=== PATIENT | male | born 1955 | race Caucasian/White ===

== ENCOUNTER 2018-07-31 17:08 | Emergency (ER) | payer BC ==
[~2018-07-31] VITALS: Ht 175.3 cm; Wt 106.8 kg
--- NOTE | 2018-07-31 18:03 | REP ---
Portable chest, 05:37 p.m., single AP view the patient sitting: There are no comparisons. The lung lucas are clear. Cardiac size is upper normal. The angel, mediastinum, skeletal structures are unremarkable. Impression: Essentially negative portable chest. Electronically Signed by Reggie Sierra MD 07/31/2018 05:55 P
[2018-07-31] MEDS ORDERED: LABETALOL HCL 100 MG/20 ML VIAL IV STA (18:07)
[2018-07-31] MEDS ORDERED: ASPIRIN 81 MG CHEW TABLET PO ONE (18:15)
[2018-07-31 18:23] LABS: BASO # 0.1 10^3/uL (0.0-0.2); BASO % 0.6 % (0.0-1.0); EOS # 0.1 10^3/uL (0.0-0.50); EOS % 1.7 % (0.0-3.0); HEMATOCRIT 50.8 % (42.0-52.0); HEMOGLOBIN 17.6 g/dl (13.5-17.5); LYMPH # 2.4 10^3/uL (1.5-4.5); MEAN CORPUSCULAR HGB CONC 34.6 g/dl (32.0-36.5); MEAN CORPUSCULAR VOLUME 86.5 fl (80.0-96.0); MONO # 0.8 10^3/uL (0.0-0.8); MONO % 10.1 % (0.0-5.0); NEUTROPHILS # 4.8 10^3/uL (1.8-7.7); NEUTROPHILS % 58.4 % (36.0-66.0); PLATELET COUNT, AUTOMATED 234 10^3/uL (150-450); RED BLOOD COUNT 5.87 10^6/uL (4.30-6.10); WHITE BLOOD COUNT 8.2 10^3/uL (4.0-10.0)
[2018-07-31 18:34] LABS: INR 0.96; PARTIAL THROMBOPLASTIN TIME 29.2 SECONDS (25.4-37.6); PROTHROMBIN TIME 12.9 SECONDS (12.1-14.4)
[2018-07-31 18:53] LABS: ALT/SGPT 44 U/L (12-78); BILIRUBIN,DIRECT 0.2 MG/DL (0.0-0.2); BILIRUBIN,TOTAL 0.5 MG/DL (0.2-1.0); BLOOD UREA NITROGEN 13 MG/DL (7-18); CALCIUM LEVEL 10.3 MG/DL (8.8-10.2); CARBON DIOXIDE LEVEL 34 MEQ/L (21-32); CHLORIDE LEVEL 99 MEQ/L (98-107); CPK CREATINE PHOSPHOKINASE 533 U/L (39-308); CREATININE FOR GFR 1.03 MG/DL (0.70-1.30); FREE T4 0.93 NG/DL (0.76-1.46); GLOMERULAR FILTRATION RATE > 60.0 (>49); GLUCOSE, FASTING 97 MG/DL (70-100); LIPASE 115 U/L (73-393); MB/CK RELATIVE INDEX 10.32 (< OR =4); SODIUM LEVEL 137 MEQ/L (136-145)
[2018-07-31] MEDS ORDERED: HEPARIN DRIP 25,000 UNITS in APPROPRIATE DILUENT 1 EA IV SCH (19:24)
[2018-07-31] MEDS ORDERED: NITROGLYCERIN 2% OINT 1 GM *U/D* PKT TOP ONE (19:30)
[2018-07-31] MEDS ORDERED: HEPARIN SOD (PORCINE) 5000 UNITS/ML VIAL IV ONE (19:30)
[2018-07-31 20:12] VITALS: BP 192/97
--- NOTE | 2018-08-01 05:59 | ECGEPIP ---
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
--- NOTE | 2018-08-01 06:02 | ECGEPIP ---
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 Order Number: [id number] Reading MD: Raj Steinberg Measurements Intervals [place] Rate: 69 P: 31 NV: 179 QRS: 26 QRSD: 88 T: 135 QT: 390 QTc: 419 Interpretive Statements SINUS RHYTHM POSSIBLE LEFT ATRIAL ENLARGEMENT MODERATE T-WAVE ABNORMALITY, CONSIDER LATERAL ISCHEMIA SIMILAR TO PRIOR ON SAME DATE Electronically Signed on 08-01-2018 6:02:34 EDT by Raj Steinberg
== END 2018-07-31 20:14 | disposition short-term general hospital (02) ==
LOC: M ED 17:08
DX: I21.4 Non-ST elevation (NSTEMI) myocardial infarction (principal); I10 Essential (primary) hypertension; Z87.891 Personal history of nicotine dependence

== ENCOUNTER 2018-08-04 13:32 | Emergency (ER) | payer BC ==
[~2018-08-04] VITALS: Ht 175.3 cm; Wt 104.5 kg
[2018-08-04] MEDS ORDERED: LISI10TA4 PO (13:41)
[2018-08-04] MEDS ORDERED: NITR0.4S14 SL (13:41)
[2018-08-04] MEDS ORDERED: ATOR80TA59 PO (13:41)
[2018-08-04] MEDS ORDERED: ASPI81TA85 PO (13:41)
[2018-08-04] MEDS ORDERED: BRIL90TA PO (13:41)
[2018-08-04] MEDS ORDERED: AMLO10TA PO (13:41)
[2018-08-04] MEDS ORDERED: TOPR25TA PO (13:41)
[2018-08-04 14:54] LABS: BASO # 0.1 10^3/uL (0.0-0.2); BASO % 0.6 % (0.0-1.0); EOS # 0.2 10^3/uL (0.0-0.50); EOS % 2.7 % (0.0-3.0); HEMATOCRIT 47.3 % (42.0-52.0); HEMOGLOBIN 16.3 g/dl (13.5-17.5); LYMPH # 1.7 10^3/uL (1.5-4.5); LYMPH % 22.5 % (24.0-44.0); MEAN CORPUSCULAR HEMOGLOBIN 30.8 pg (27.0-33.0); MEAN CORPUSCULAR HGB CONC 34.5 g/dl (32.0-36.5); MEAN CORPUSCULAR VOLUME 89.4 fl (80.0-96.0); MONO # 0.8 10^3/uL (0.0-0.8); MONO % 9.8 % (0.0-5.0); NEUTROPHILS # 4.9 10^3/uL (1.8-7.7); NEUTROPHILS % 63.8 % (36.0-66.0); PLATELET COUNT, AUTOMATED 226 10^3/uL (150-450); RED BLOOD COUNT 5.29 10^6/uL (4.30-6.10); WHITE BLOOD COUNT 7.7 10^3/uL (4.0-10.0)
[2018-08-04 15:48] LABS: INR 1.06; PARTIAL THROMBOPLASTIN TIME 27.7 SECONDS (25.0-38.4); PROTHROMBIN TIME 13.5 SECONDS (11.8-14.0)
[2018-08-04 17:20] VITALS: BP 165/80
== END 2018-08-04 18:26 | disposition home or self-care (01) ==
LOC: M ED 13:32
DX: R04.0 Epistaxis (principal); I11.9 Hypertensive heart disease without heart failure; E78.5 Hyperlipidemia, unspecified; Z95.5 Presence of coronary angioplasty implant and graft; Z79.899 Other long term (current) drug therapy; Z79.01 Long term (current) use of anticoagulants; Z79.82 Long term (current) use of aspirin

== ENCOUNTER 2018-09-06 13:11 | Outpatient (RCR) | payer BC ==
[~2018-09-06 13:11] MED LIST: AMLO10TA PO; ASPI81TA85 PO; ATOR80TA59 PO; BRIL90TA PO; LISI10TA4 PO; NITR0.4S14 SL; TOPR25TA PO
--- NOTE | 2018-09-06 14:37 | CARECAPL ---
Assessment Account #s: Initial Assessment General Diagnoses: Stent, NSTEMI Date of event: Aug 01, 2018 Physician: Gaurang Morrison MD Allergies: Coded Allergies: No Known Allergies (Unverified , 07/31/18) Date Entered Program: Sep 06, 2018 Risk strat for cardiac event: High Exercise Assessment: Initial Assessment Exercise Prescription Modalities initiated: Treadmill (will add speed 2.0 for 10 minutes), Nustep (will add level 1 for 10 minutes), Arm Aerometer (will add 1.0 for 8 minutes), Dumbells (1lbs 2 sets for 10 reps each), Recumbent Bike (will add resistance 1 for 5 minutes) Frequency: 3 Duration (Minutes) 30-60 minutes total exercise a day. 15-20 work intervals in minutes. prn rest intervals in minutes. Functional Capacity Goal Sustained Metabolic Equivalent of a task (MET) goal of 3.0-3.5 for 15-20 minutes. Intensity: 3-Moderate Progression (METS) Increase by: 0.5 METS every: 3-5 sessions Angina with ex: No Target Heart Rate rest + 35-40 per beta zaki therapy Hypertension: No Medications Scheduled Amlodipine Besylate (Norvasc), 1 TAB PO DAILY, (Reported) Aspirin (Aspir 81), 1 TAB PO DAILY, (Reported) Atorvastatin Calcium (Atorvastatin Calcium), 1 TAB PO DAILY, (Reported) Lisinopril (Lisinopril), 1 TAB PO DAILY, (Reported) Metoprolol Succinate (Toprol Xl), 1 TAB PO DAILY, (Reported) Nitroglycerin (Nitroglycerin), 1 TAB SL ASDIRECTED, (Reported) Ticagrelor Base (Brilinta), 1 TAB PO BID, (Reported) Target Goals Individual exercise Rx (1) BP 140/90 or 130/80 if DM or CKD (1) Aerobic active 30+min 5 days per week (1) Nutrition Date: Sep 06, 2018 Assessment: Initial Assessment Lipids Total Cholesterol (96), High Density Lipids (HDL) (40), Low Density Lipids (LDL) (96), Triglycerides (143) Lipid- med/supplement atorvastatin Diabetes Diabetes: No Monitor Blood Sugar at home: No Weight Management Weight (lbs): 229 Height (inches): 69 Waist Circumference (Inches): 46 BMI: 33.81 Weight goal: 180 Special Diet: mediteranean diet Alcohol: none Diet Access Tool: Rate your plate Score: 62 Referral to Diabetes education: No Referral to lipid clinic: No Referral to weight mangement p: No Target goal LDL-C<100 if triglycerides are >200 Non-HDL-C should be <130 (1) LDL-C<70 for high risk patients (4) HbA1c<7% (1) BMI<25 Waist cir<40in M/<35in F (1) Education Date: Sep 06, 2018 Assessment: Initial Assessment Learning Barriers: ready Knowledge Test Score: 5 Family Support: Yes Quit: >6 months (quit 40 years ago) Tobacco Use Cigarettes smoked per day: 6 Smokeless tobacco: No Intervention Referral to smoking cessation: No Individual education and couns: No Tobacco Adjunct: No Education class schedule given: No Attended education classes: No Target Goals Complete cessation of tobacco use (1). Psychosocial Date: Sep 06, 2018 Assessment: Initial Assessment Psych Test (Initial/Discharge) Tool Used: CESD (refused) Intervention Physician Consult: No Physician Referral: No Psychotropic medication none Target Goal Assess presence or absence of depression using a valid screening tool (1). Maximize coping skills (2). Positive support system (2). Patient/Program Goal Preventative Medication: Yes Aspirin, Yes Beta blockade, Yes URBAN Inhibitor, Yes Statin/OTR lipid Lowering, Yes Other (brilinta) Fall Risk Assess: Yes (not a fall risk) Provider Assessment Provider Assessment: Proceed with rehab Antonieta Abraham RN Sep 06, 2018 14:37
== END 2018-09-13 ==
LOC: M CR 13:11
PROVIDERS: ATTEND Internal Medicine Cardiovascular Disease
DX: I21.4 Non-ST elevation (NSTEMI) myocardial infarction (principal)

== ENCOUNTER 2018-10-13 08:08 | Outpatient (RCR) | payer BC ==
--- NOTE | 2018-09-27 09:29 | CARECAPL ---
Assessment Account #s: Re-Assessment I General Diagnoses: Stent, STEMI Date of event: Aug 01, 2018 Physician: Gaurang Morrison MD Allergies: Coded Allergies: No Known Allergies (Unverified , 07/31/18) Date Entered Program: Aug 07, 2018 Risk strat for cardiac event: High Exercise Date: Sep 27, 2018 Assessment: Re-Assessment I Exercise Prescription Modalities initiated: Treadmill (2.3/.5 mts 2.81 rpe 3.5 20 minutes), Nustep (L4 mts 2.3 rpe 5 9 minutes), Arm Aerometer, Dumbells, Recumbent Bike (R2 mts 3.2 rpe 4 5 minutes) Duration (Minutes) minutes total exercise a day. work intervals in minutes. rest intervals in minutes. Functional Capacity Goal Sustained Metabolic Equivalent of a task (MET) goal of 4-4.5 for 15-20 minutes. Intensity: 3-Moderate Progression (METS) Increase by: METS every: sessions Angina with ex: No Resistance Training: Yes Weight (pounds): 2 Reps: 6-8 Medications Scheduled Amlodipine Besylate (Norvasc), 1 TAB PO DAILY, (Reported) Aspirin (Aspir 81), 1 TAB PO DAILY, (Reported) Atorvastatin Calcium (Atorvastatin Calcium), 1 TAB PO DAILY, (Reported) Lisinopril (Lisinopril), 1 TAB PO DAILY, (Reported) Metoprolol Succinate (Toprol Xl), 1 TAB PO DAILY, (Reported) Nitroglycerin (Nitroglycerin), 1 TAB SL ASDIRECTED, (Reported) Ticagrelor Base (Brilinta), 1 TAB PO BID, (Reported) Current BP 140/80 Med Change: No Intervention Education: RPE Scale (1.5 scale (5 not able to complete) difficulty scale), Equipment orientation (all equipment reviewed with each visit as needed), warm up/cool down (safety, injury prevention), Understand BP (normal bP range) Education Goals Met: No (progressing toward goals) Target Goals Individual exercise Rx (1) BP 140/90 or 130/80 if DM or CKD (1) Aerobic active 30+min 5 days per week (1) Nutrition Date: Sep 27, 2018 Assessment: Re-Assessment I Current Weight (pounds): 227.4 Intervention Nurse/patient discussion: Yes Diet Class: Yes (will see this program) Referral to Diabetes education: No Referral to lipid clinic: No Referral to weight mangement p: No Education Goals Met: No (progressing toward goals) Target goal LDL-C<100 if triglycerides are >200 Non-HDL-C should be <130 (1) LDL-C<70 for high risk patients (4) HbA1c<7% (1) BMI<25 Waist cir<40in M/<35in F (1) Education Date: Sep 27, 2018 Assessment: Re-Assessment I Intervention Education: Risk factors (printed material given and reviewed with pt), Angina S/S (printed material given to pt and reviewed), Sexuality (printed material given to pt and reviewed) Education Goals Met: No (progressing toward goals) Target Goals Complete cessation of tobacco use (1). Psychosocial Date: Sep 27, 2018 Assessment: Re-Assessment I Education Education: Coping Techniques (printed material given to pt and reviewed) Education Goals Met: No (progressing toward goals) Target Goal Assess presence or absence of depression using a valid screening tool (1). Maximize coping skills (2). Positive support system (2). Provider Assessment Session Number: 4 Provider Assessment: No changes (just started program. Good attendance thus far) Katarina Dailey RN Sep 27, 2018 09:29
== END 2018-10-14 ==
LOC: M CR 08:08
PROVIDERS: ATTEND Internal Medicine Cardiovascular Disease
DX: I21.4 Non-ST elevation (NSTEMI) myocardial infarction (principal)

== ENCOUNTER 2018-11-03 09:16 | Outpatient (RCR) | payer BC ==
--- NOTE | 2018-10-19 09:03 | CARECAPL ---
Assessment Account #s: Re-Assessment II General Diagnoses: Stent, STEMI Date of event: Aug 01, 2018 Physician: Gaurang Morrison MD Allergies: Coded Allergies: No Known Allergies (Unverified , 07/31/18) Date Entered Program: Aug 07, 2018 Risk strat for cardiac event: High Exercise Date: Oct 13, 2018 Assessment: Re-Assessment II Stages of change: Contemplate Exercise Prescription Modalities initiated: Treadmill (speed 2.4 incline 1.0 for 20 minutes mets 3.17 rpe 3), Nustep (resistance 4 for 15 minutes Mets 4.8 Rpe 3.5), Arm Aerometer (resistance 2.5 for 10 minutes mets 3.1 rpe 4), Dumbells (5 lb 2 sets 15 reps each RPE3), Recumbent Bike (resistance 2 for 7 minutes mets 4.5 rpe 3) Frequency: 2-3 Duration (Minutes) 30 - 60 minutes total exercise a day. 15 - 20 work intervals in minutes. PRN rest intervals in minutes. Functional Capacity Goal Sustained Metabolic Equivalent of a task (MET) goal of 5.0-6.0 for 15-20 minutes. Intensity: 3-Moderate Progression (METS) Increase by: 0.5 METS every: 3-5 sessions Angina with ex: No Target Heart Rate rest + 35-40 per beta zaki therapy Resistance Training: Yes Weight (pounds): 5 Reps: 12-15 Medications Scheduled Amlodipine Besylate (Norvasc), 1 TAB PO DAILY, (Reported) Aspirin (Aspir 81), 1 TAB PO DAILY, (Reported) Atorvastatin Calcium (Atorvastatin Calcium), 1 TAB PO DAILY, (Reported) Lisinopril (Lisinopril), 1 TAB PO DAILY, (Reported) Metoprolol Succinate (Toprol Xl), 1 TAB PO DAILY, (Reported) Nitroglycerin (Nitroglycerin), 1 TAB SL ASDIRECTED, (Reported) Ticagrelor Base (Brilinta), 1 TAB PO BID, (Reported) Current BP 140/76 Med Change: No Education Goals Met: Yes (documented on prior ITP.) Target Goals Individual exercise Rx (1) BP 140/90 or 130/80 if DM or CKD (1) Aerobic active 30+min 5 days per week (1) Nutrition Date: Oct 19, 2018 Assessment: Re-Assessment II Stages of change: Contemplate Med Change: No Diabetes Diabetes: No Medication Change: No Current Weight (pounds): 224.6 Weight Goal 190 Intervention Devil Tender Consult: No Nurse/patient discussion: Yes Diet Class: Yes Education Goals Met: Yes (previously documented) Target goal LDL-C<100 if triglycerides are >200 Non-HDL-C should be <130 (1) LDL-C<70 for high risk patients (4) HbA1c<7% (1) BMI<25 Waist cir<40in M/<35in F (1) Education Date: Oct 19, 2018 Assessment: Re-Assessment II Stages of change: Contemplate Tobacco Use Smokeless tobacco: No Intervention Referral to smoking cessation: No Individual education and couns: No Tobacco Adjunct: No Education class schedule given: No Attended education classes: No Education Goals Met: Yes (previously documented ) Target Goals Complete cessation of tobacco use (1). Psychosocial Date: Oct 19, 2018 Assessment: Re-Assessment II Stages of change: Contemplate Intervention Physician Consult: No Physician Referral: No Med Change: No Stress Management Class: Yes Uses Stress Management Skills: Yes Education Goals Met: Yes (previous documented) Target Goal Assess presence or absence of depression using a valid screening tool (1). Maximize coping skills (2). Positive support system (2). Patient/Program Goal Preventative Medication: Yes Aspirin, Yes Beta blockade, Yes URBAN Inhibitor, Yes Statin/OTR lipid Lowering, Yes Other (brilinta) Fall Risk Assess: Yes (no fall risk) Provider Assessment Session Number: 10 Provider Assessment: Proceed with rehab (progressing) Antonieta Abraham RN Oct 19, 2018 09:03
--- NOTE | 2018-11-13 12:54 | CARECAPL ---
Assessment Account #s: Re-Assessment II General Diagnoses: Stent, STEMI Date of event: Aug 31, 2018 Physician: Gaurang Morrison MD Allergies: Coded Allergies: No Known Allergies (Unverified , 07/31/18) Date Entered Program: Aug 07, 2018 Risk strat for cardiac event: High Exercise Date: Nov 03, 2018 Assessment: Re-Assessment II Stages of change: Contemplate Exercise Prescription Plan educate on cardiovascular disease and increase endurance, flexibility and strength through monitored exercise program. Modalities initiated: Treadmill (speed 2.4 incline 2.0 for 20 minutes mets 3.5 rpe 3.5), Nustep (resistance of 4 for 15 minutes mets 4.8 rpe 3.5), Arm Aerometer (resistance of 3.0 fpr 10 minutes mets 3.0 rpe 3.5), Dumbells (6lbs 1 set 15 reps rpe 3.5), Recumbent Bike (resistance of 3 for 8 minutes mets 3.7 RPE 3) Frequency: 2 Duration (Minutes) 30 - 60 minutes total exercise a day. 15 - 20 work intervals in minutes. PRN rest intervals in minutes. Functional Capacity Goal Sustained Metabolic Equivalent of a task (MET) goal of 5.0-6.0 for 15-20 minutes. Intensity: 3-Moderate Progression (METS) Increase by: 0.5 METS every: 3-5 sessions Angina with ex: No Target Heart Rate rest + 35-40 per beta zaki therapy Resistance Training: Yes Weight (pounds): 6 Reps: 12-15 Hypertension: Yes Hypertension controlled with: Medication Resting 130/64 Peak Exercise BP 180/90 Meds metoprolol, lisinopril and norvasc Medications Scheduled Amlodipine Besylate (Norvasc), 1 TAB PO DAILY, (Reported) Aspirin (Aspir 81), 1 TAB PO DAILY, (Reported) Atorvastatin Calcium (Atorvastatin Calcium), 1 TAB PO DAILY, (Reported) Lisinopril (Lisinopril), 1 TAB PO DAILY, (Reported) Metoprolol Succinate (Toprol Xl), 1 TAB PO DAILY, (Reported) Nitroglycerin (Nitroglycerin), 1 TAB SL ASDIRECTED, (Reported) Ticagrelor Base (Brilinta), 1 TAB PO BID, (Reported) Current BP 130/64 Med Change: No Education Goals Met: No (will reinforce education) Target Goals Individual exercise Rx (1) BP 140/90 or 130/80 if DM or CKD (1) Aerobic active 30+min 5 days per week (1) Nutrition Date: Nov 13, 2018 Assessment: Re-Assessment II Stages of change: Contemplate Current Weight (pounds): 224.6 Intervention Books Binder Consult: No Nurse/patient discussion: Yes Dietary Goals eat healthier portions Diet Class: Yes Education Goals Met: No (will continue to reinforce education) Target goal LDL-C<100 if triglycerides are >200 Non-HDL-C should be <130 (1) LDL-C<70 for high risk patients (4) HbA1c<7% (1) BMI<25 Waist cir<40in M/<35in F (1) Education Date: Nov 13, 2018 Assessment: Re-Assessment II Stages of change: Contemplate Intervention Education: Risk factors (patient describes weight, smoking and diet to be risk factors for CAD.) Education Goals Met: No (will continue with education) Target Goals Complete cessation of tobacco use (1). Psychosocial Date: Nov 13, 2018 Assessment: Re-Assessment II Stages of change: Contemplate Med Change: No Stress Management Class: Yes Uses Stress Management Skills: Yes Education Education: Coping Techniques (patient describes talking to spouse will allievate stress), S/S depression (patient described 3 s/s of depression such as withdrawal, loss of appetite and crying. ), Relaxation Techniques (patient describes listening to music or watching tv to relaxing things to do.) Education Goals Met: No (will continue to education) Target Goal Assess presence or absence of depression using a valid screening tool (1). Maximize coping skills (2). Positive support system (2). Patient/Program Goal Preventative Medication: Yes Aspirin, Yes Beta blockade, Yes URBAN Inhibitor, Yes Statin/OTR lipid Lowering, Yes Other (brilinta) Fall Risk Assess: Yes (negative for fall risk) Provider Assessment Session Number: 12 Provider Assessment: Proceed with rehab (patient recently has had poor attendance. Not consistant with attending. Last visit was 11/03/18) Antonieta Abraham RN Nov 13, 2018 12:54
== END 2018-11-13 ==
LOC: M CR 09:16
PROVIDERS: ATTEND Internal Medicine Cardiovascular Disease
DX: Z98.61 Coronary angioplasty status (principal); I21.4 Non-ST elevation (NSTEMI) myocardial infarction

== ENCOUNTER 2018-11-16 08:41 | Outpatient (RCR) | payer BC ==
--- NOTE | 2018-12-04 15:00 | CARECAPL ---
Assessment Account #s: Discharge General Diagnoses: Stent, STEMI Date of event: Aug 31, 2018 Physician: Gaurang Morrison MD Allergies: Coded Allergies: No Known Allergies (Unverified , 07/31/18) Date Entered Program: Aug 07, 2018 Risk strat for cardiac event: High Exercise Assessment: Followup/Discharge Exercise Prescription Modalities initiated: Treadmill (2.4/2.0 mts 3.5 rpe 3.5), Nustep ( mts s5.6 rpe 3.5 15 minutes), Arm Aerometer (4.0 mts 3.8 rpe 3.5 10 minutes), Dumbells, Recumbent Bike (kR3 mts 3.7 rpe 3.5 10 minutes) Duration (Minutes) 30 - 60 minutes total exercise a day. 15 - 20 work intervals in minutes. PRN rest intervals in minutes. Functional Capacity Goal Sustained Metabolic Equivalent of a task (MET) goal of for minutes. Progression (METS) Increase by: METS every: sessions Angina with ex: No Resistance Training: Yes Weight (pounds): 6 Reps: 6-8 Hypertension: Yes Hypertension controlled with: Medication Resting 128/62 Peak Exercise BP 178/80 Meds see below Medications Scheduled Amlodipine Besylate (Norvasc), 1 TAB PO DAILY, (Reported) Aspirin (Aspir 81), 1 TAB PO DAILY, (Reported) Atorvastatin Calcium (Atorvastatin Calcium), 1 TAB PO DAILY, (Reported) Lisinopril (Lisinopril), 1 TAB PO DAILY, (Reported) Metoprolol Succinate (Toprol Xl), 1 TAB PO DAILY, (Reported) Nitroglycerin (Nitroglycerin), 1 TAB SL ASDIRECTED, (Reported) Ticagrelor Base (Brilinta), 1 TAB PO BID, (Reported) Education Goals Met: No (didn't complete program) Target Goals Individual exercise Rx (1) BP 140/90 or 130/80 if DM or CKD (1) Aerobic active 30+min 5 days per week (1) Nutrition Date: Dec 04, 2018 Assessment: Followup/Discharge Current Weight (pounds): 223 Education Goals Met: No (didn't complete program) Target goal LDL-C<100 if triglycerides are >200 Non-HDL-C should be <130 (1) LDL-C<70 for high risk patients (4) HbA1c<7% (1) BMI<25 Waist cir<40in M/<35in F (1) Education Date: Dec 04, 2018 Assessment: Followup/Discharge Education Goals Met: No (program not completed) Target Goals Complete cessation of tobacco use (1). Psychosocial Assessment: Followup/Discharge Target Goal Assess presence or absence of depression using a valid screening tool (1). Maximize coping skills (2). Positive support system (2). Provider Assessment Session Number: 14 Provider Assessment: Please add/change: (program not completed d/t poor attendance. last attended date 11/16/18 d/c from program) Katarina Dailey RN Dec 04, 2018 15:00
== END 2018-12-14 ==
LOC: M CR 08:41
PROVIDERS: ATTEND Internal Medicine Cardiovascular Disease
DX: I21.4 Non-ST elevation (NSTEMI) myocardial infarction (principal); Z98.61 Coronary angioplasty status

== ENCOUNTER 2019-03-08 08:29 | Day surgery (SDC) | payer BC ==
[~2019-03-08] VITALS: Ht 177.8 cm; Wt 107.7 kg
[~2019-03-08 08:29] MED LIST changes: +BSS IRR 500ML/OMIDRIA 4ML IRR BAG (OR ONLY) (J1097 PER ML) As Ordered ONE; +CEFUROXIME 1MG/0.1ML INTRACAMERAL INJ As Ordered ONE; +DUOVISC (0.50ML VISCOAT/0.55ML PROVISC) OPHTH KIT As Ordered ONE; +OFLOXACIN 0.3 % (OCUFLOX) OPTH SOL 5ML OD ONE; +PHENYLEPHRINE 2.5% OPHTH SOL 2ML OD ONE; +POVIDONE-IODINE 5% OPHTH PREP SOL 30ML As Ordered ONE; +PROPARACAINE 0.5% OPHTH SOL 15ML OD ONE; +TROPICAMIDE 1% OPHTH SOLN 2ML OD ONE
[2019-03-08] MEDS ORDERED: fentaNYL 100 MCG/2 ML INJECTION (J3010) As Ordered ONE (09:47)
[2019-03-08] MEDS ORDERED: MIDAZOLAM INJ 2 MG/2 ML VIAL (J2250) As Ordered ONE (09:47)
[2019-03-08 11:25] VITALS: BP 125/63
--- NOTE | 2019-03-09 16:48 | RO ---
DATE OF PROCEDURE: 03/08/2019 PREOPERATIVE DIAGNOSIS: 1. Visually significant nuclear sclerotic cataract right eye. POSTOPERATIVE DIAGNOSIS: 1. Visually significant nuclear sclerotic cataract right eye. PROCEDURE: 1. Cataract extraction with use of phacoemulsification and placement of intraocular lens, AU00T0, 16.5 D, right eye. SURGEON: Ruben Mitchell DO AUTO PAINTER HELPER: None. ANESTHESIA: Local with monitored anesthesia care (MAC), with Omidria (4 mL/500 mL) mixed into irrigation solution. COMPLICATIONS: None. POSTOPERATIVE CONDITION: Stable. INDICATIONS FOR SURGERY: 1. Blurred vision affecting patients activities of daily living. DESCRIPTION OF PROCEDURE: The patient was seen in the preoperative area and properly identified. The correct operative eye was identified and marked. The patient received topical anesthetic, antibiotics, and topical dilating drops. The patient was then transferred to the operating room. The correct side was re-identified, and a time-out was performed. The eye was prepped and draped in a sterile fashion. The eyelids were isolated with Tegaderm tape, and the lids were held open with an adjustable speculum. A 1.0 mm paracentesis incision was made. Intraocular preservative-free Shugarcaine was then injected into the anterior chamber. Viscoelastic was then injected into the anterior chamber through the paracentesis. Using a 2.4 mm sharp-tipped keratome, the anterior chamber was entered via a temporal clear cornea incision. A continuous curvilinear capsulorrhexis was created with Utrata forceps. Hydrodissection was performed with balanced salt solution (BSS) on a blunt cannula until the nucleus was able to rotate freely. The crystalline lens was phacoemulsified and aspirated. Irrigation/aspiration was used to remove the cortical material. Cohesive viscoelastic was placed into the capsular bag to deepen it. The implant was placed into the capsular bag and allowed to unfold. Placement was confirmed by visualizing the anterior capsulorrhexis. Irrigation/aspiration was used to remove the viscoelastic. The clear corneal incision was hydrated with BSS on a blunt cannula. The lens was well positioned. The incisions were then tested for leaks and found to be negative. Cefuroxime was injected into the anterior chamber. The eye was then palpated for appropriate pressure and adjusted accordingly with BSS. The eyelid speculum was then carefully removed. A shield was placed over the eye. The patient tolerated the procedure well and was discharged to the recovery unit in a stable condition.
== END 2019-03-08 11:30 | disposition home or self-care (01) ==
LOC: M SDC 08:29
PROVIDERS: ATTEND Ophthalmology
DX: H25.11 Age-related nuclear cataract, right eye (principal); I11.9 Hypertensive heart disease without heart failure; I25.10 Atherosclerotic heart disease of native coronary artery without angina pectoris; E78.5 Hyperlipidemia, unspecified; R60.9 Edema, unspecified; I25.2 Old myocardial infarction; Z95.5 Presence of coronary angioplasty implant and graft; K76.0 Fatty (change of) liver, not elsewhere classified; M47.812 Spondylosis without myelopathy or radiculopathy, cervical region; D75.9 Disease of blood and blood-forming organs, unspecified; Z79.899 Other long term (current) drug therapy; Z79.82 Long term (current) use of aspirin; Z79.02 Long term (current) use of antithrombotics/antiplatelets
CPT/HCPCS: 66984; J1097; J2250; J3010

== ENCOUNTER 2021-06-02 17:41 | Emergency (ER) | payer BC, MEDICARE, SELFPAY ==
[~2021-06-02] VITALS: Ht 182.9 cm; Wt 97.8 kg
[~2021-06-02 17:41] MED LIST changes: -ASPI81TA85 PO; +ASPI81TA86 PO; -BSS IRR 500ML/OMIDRIA 4ML IRR BAG (OR ONLY) (J1097 PER ML) As Ordered ONE; -CEFUROXIME 1MG/0.1ML INTRACAMERAL INJ As Ordered ONE; -DUOVISC (0.50ML VISCOAT/0.55ML PROVISC) OPHTH KIT As Ordered ONE; +LISI10TA22 PO; -LISI10TA4 PO; -OFLOXACIN 0.3 % (OCUFLOX) OPTH SOL 5ML OD ONE; -PHENYLEPHRINE 2.5% OPHTH SOL 2ML OD ONE; -POVIDONE-IODINE 5% OPHTH PREP SOL 30ML As Ordered ONE; -PROPARACAINE 0.5% OPHTH SOL 15ML OD ONE; -TROPICAMIDE 1% OPHTH SOLN 2ML OD ONE
[2021-06-02] MEDS ORDERED: LOSA25TA13 (18:11)
[2021-06-02 18:56] LABS: HEMATOCRIT 43.4 % (42.0-52.0); HEMOGLOBIN 14.7 g/dl (13.5-17.5); MEAN CORPUSCULAR HEMOGLOBIN 28.9 pg (27.0-33.0); MEAN CORPUSCULAR HGB CONC 33.9 g/dl (32.0-36.5); MEAN CORPUSCULAR VOLUME 85.4 fl (80.0-96.0); RED BLOOD COUNT 5.08 10^6/uL (4.30-6.10); WHITE BLOOD COUNT 5.5 10^3/uL (4.0-10.0)
[2021-06-02 19:13] LABS: PLATELET COUNT, AUTOMATED 67 10^3/uL (150-450)
[2021-06-02 19:18] LABS: ATYPICAL LYMPH 2 % (0-5); BASOPHILS 1 % (0-1); LYMPHOCYTES 6 % (16-44); MONOCYTES 10 % (0-5); NEUTROPHILS 81 % (28-66)
[2021-06-02 19:20] LABS: PLATELET CLUMPS SMALL AMT; PLATELET ESTIMATE DECREASED (NORMAL)
[2021-06-02] MEDS ORDERED: NS IV ONE (19:25)
[2021-06-02] MEDS ORDERED: DESMOPRESSIN ACETATE IV ONE (19:25)
[2021-06-02 19:30] LABS: ALBUMIN 2.1 GM/DL (3.2-5.2); BILIRUBIN,DIRECT 1.6 MG/DL (0.0-0.2); BILIRUBIN,TOTAL 2.1 MG/DL (0.2-1.0); CALCIUM LEVEL 10.1 MG/DL (8.8-10.2); CREATININE FOR GFR 3.57 MG/DL (0.70-1.30); GLOMERULAR FILTRATION RATE 18.4 (>49); POTASSIUM SERUM 5.7 MEQ/L (3.5-5.1); THYROID STIMULATING HORMONE 1.93 uIU/ML (0.358-3.740); TOTAL PROTEIN 6.1 GM/DL (6.4-8.2)
[2021-06-02] MEDS ORDERED: fentaNYL 100 MCG/2 ML INJECTION As Ordered ONE ×2 (19:37→19:38)
[2021-06-02] MEDS ORDERED: PROPOFOL 1,000 MG/100 ML VIAL As Ordered ONE (19:37)
[2021-06-02] MEDS ORDERED: ROCURONIUM BROMIDE 50 MG/5 ML VIAL IV SCH (19:38)
[2021-06-02] MEDS ORDERED: ETOMIDATE INJ 20MG/10ML VIAL IV STA (19:38)
[2021-06-02] MEDS ORDERED: ROCURONIUM BROMIDE 50 MG/5 ML VIAL IV PRN (19:55)
[2021-06-02] MEDS ORDERED: MANNITOL 25% 12.5 GM/50 ML VIAL (J2150) IV ONE (19:55)
[2021-06-02] MEDS ORDERED: propofoL 1,000 MG in IV 1 EA IV SCH (19:55)
[2021-06-02] MEDS ORDERED: NS 1,000 ML IV ONE (20:05)
[2021-06-02 20:06] LABS: INR 1.68; PROTHROMBIN TIME 20.2 SECONDS (12.7-14.5)
[2021-06-02 20:07] LABS: PARTIAL THROMBOPLASTIN TIME 31.9 SECONDS (25.9-37.0)
[2021-06-02 20:22] LABS: ABG BASE EXCESS -11.9 (-2.0-2.0); ABG HCO3 14.1 MEQ/L (22.0-26.0); ABG O2 SATURATION 99.7 % (95.0-99.0); ABG PARTIAL PRESSURE CO2 32.5 mmHg (35.0-45.0); ABG PARTIAL PRESSURE O2 308.6 mmHg (75.0-100.0); ABG STANDARD HCO3 15.3 MEQ/L (22.0-26.0); ABG TOTAL CO2 15.1 MEQ/L (23.0-31.0); ABG pH (ARTERIAL) 7.254 UNITS (7.350-7.450)
[2021-06-02 20:30] VITALS: BP 135/66
[2021-06-02] MEDS ORDERED: fentaNYL 100 MCG/2 ML INJECTION IV ONE (23:40)
== END 2021-06-02 21:07 | disposition short-term general hospital (02) ==
LOC: M ED 17:41 → EDBD 17:41 → M ED 21:07
DX: S06.5X0A Traumatic subdural hemorrhage without loss of consciousness, initial encounter (principal); U07.1 COVID-19; E86.0 Dehydration; N17.9 Acute kidney failure, unspecified; K72.00 Acute and subacute hepatic failure without coma; I10 Essential (primary) hypertension; I51.9 Heart disease, unspecified; Z86.79 Personal history of other diseases of the circulatory system; Z95.5 Presence of coronary angioplasty implant and graft; Z79.899 Other long term (current) drug therapy
CPT/HCPCS: 31500; 36600; 51702; 70450; 71045; 72125; 80048; 80076; 82550; 82803; 84443; 84484; 85025; 85049; 85055; 85610; 85730; 86850; 86900; 86901; 87798; 93005; 93041; 96365; 96375; 99291; 99292; J2150; J2597